=== PATIENT | male | born 2000 | race Two or more races ===

== ENCOUNTER → 2020-03-26 | Emergency (ER) | payer MEDICAID | END | disposition left against medical advice (07) | LOC: ER 22:32 | DX: R50.9 Fever, unspecified (principal); R51 Headache; Z53.21 Procedure and treatment not carried out due to patient leaving prior to being seen by health care provider ==

== ENCOUNTER 2021-10-16 23:23 | Emergency (ER) | payer MEDICAID, OTHER ==
[~2021-10-16] VITALS: Ht 188 cm; Wt 154.2 kg
[2021-10-17] MEDS ORDERED: ACETAMINOPHEN 500 MG TAB PO ONE (02:00)
[2021-10-17] MEDS ORDERED: IBUPROFEN 800 MG TAB PO ONE (02:00)
[2021-10-17 05:36] VITALS: BP 141/90
== END 2021-10-17 06:19 | disposition home or self-care (01) ==
LOC: ER 23:23
DX: S86.912A Strain of unspecified muscle(s) and tendon(s) at lower leg level, left leg, initial encounter (principal); W20.8XXA Other cause of strike by thrown, projected or falling object, initial encounter; Y93.89 Activity, other specified; Y92.89 Other specified places as the place of occurrence of the external cause; Y99.0 Civilian activity done for income or pay
CPT/HCPCS: 73562